=== PATIENT | male | born 1995 | race Caucasian/White ===

== ENCOUNTER 2017-07-26 23:38 | Emergency (ER) | payer OTHER ==
[~2017-07-26] VITALS: Ht 167.6 cm; Wt 77.1 kg
[~2017-07-26 23:38] MED LIST: ACETAMINOPHEN-1 EAC1 PO; AUGMENTIN 875875 MG PO; AZITHROMYCIN 2250 MG PO; DELTASONE20 MG PO; KEFLEX500 MG PO; MEDROLDOSEPACK PO; MUCINEX DM ER1 EAC1 PO; VENTOLIN HFA 1818 GM INH; ZOFRAN ODT4 MG PO
[2017-07-27 00:56] LABS: INFLUENZA A ANTIGEN None Detected (None Detect); INFLUENZA B ANTIGEN None Detected (None Detect)
[2017-07-27] MEDS ORDERED: PROMETH-CODEIN 65 ML PO (01:19)
[2017-07-27 01:43] VITALS: BP 128/72
== END 2017-07-27 01:45 | disposition home or self-care (01) ==
LOC: M.ERS 23:38
PROVIDERS: Emergency Medicine
DX: J06.9 Acute upper respiratory infection, unspecified (principal); J45.909 Unspecified asthma, uncomplicated; F10.99 Alcohol use, unspecified with unspecified alcohol-induced disorder; Z88.1 Allergy status to other antibiotic agents

== ENCOUNTER 2017-07-29 17:13 | Emergency (ER) | payer OTHER ==
[~2017-07-29] VITALS: Ht 167.6 cm; Wt 77.1 kg
[~2017-07-29 17:13] MED LIST changes: +PROMETH-CODEIN 65 ML PO
[2017-07-29] MEDS ORDERED: ZOFRAN ODT4 M1 PO (17:33)
[2017-07-29 17:35] VITALS: BP 127/70
== END 2017-07-29 17:37 | disposition home or self-care (01) ==
LOC: M.ERS 17:13
DX: R11.2 Nausea with vomiting, unspecified (principal); J06.9 Acute upper respiratory infection, unspecified; J45.909 Unspecified asthma, uncomplicated; Z88.1 Allergy status to other antibiotic agents

== ENCOUNTER 2017-08-27 21:29 | Emergency (ER) | payer OTHER ==
[~2017-08-27] VITALS: Ht 167.6 cm; Wt 77.1 kg
[~2017-08-27 21:29] MED LIST changes: +ZOFRAN ODT4 M1 PO
[2017-08-27 21:55] LABS: INFLUENZA A ANTIGEN None Detected (None Detect); INFLUENZA B ANTIGEN None Detected (None Detect)
[2017-08-27] MEDS ORDERED: PREDNISONE50 MG PO (21:59)
[2017-08-27] MEDS ORDERED: PROAIR HFA8.5 GM INH (21:59)
[2017-08-27 22:21] VITALS: BP 120/64
== END 2017-08-27 22:23 | disposition home or self-care (01) ==
LOC: M.ERS 21:29
PROVIDERS: Emergency Medicine
DX: J40 Bronchitis, not specified as acute or chronic (principal); Z88.1 Allergy status to other antibiotic agents

== ENCOUNTER 2017-09-02 13:05 | Emergency (ER) | payer OTHER ==
[~2017-09-02] VITALS: Ht 165.1 cm; Wt 77.1 kg
[~2017-09-02 13:05] MED LIST changes: +PREDNISONE50 MG PO; +PROAIR HFA8.5 GM INH
[2017-09-02 15:18] LABS: HEMATOCRIT 43.3 % (42.0-52.0); HEMOGLOBIN 14.5 gm/dL (14.0-18.0); MCH 28.2 pg (26.0-34.0); MCHC 33.4 g/dL (28.0-37.0); MCV 84.3 fL (80.0-100.0); MPV 8.9 fl. (7.2-11.1); NUCLEATED RBCS 0 /100WBC; PLATELET COUNT* 240 thou/uL (150-400); RBC 5.14 mil/uL (4.50-6.00); RDW-CV 13.2 % (10.5-14.5); WBC 21.3 thou/uL (4.0-11.0)
[2017-09-02 15:35] LABS: CALCIUM 8.5 mg/dL (8.5-10.1); CREATININE 0.8 mg/dL (0.6-1.3); POTASSIUM 4.2 mmol/L (3.5-5.1)
[2017-09-02 15:40] LABS: ABSOLUTE EOSINOPHILS 0.2 thou/uL (0.0-0.7); ABSOLUTE LYMPHOCYTES 1.5 thou/uL (0.8-5.3); ABSOLUTE MONOCYTES 1.5 thou/uL (0.0-1.2); ABSOLUTE NEUTROPHILS 18.1 thou/uL (1.6-8.1); ALBUMIN 3.2 g/dL (3.4-5.0); ATYPICAL LYMPHS 2 %; TOTAL BILIRUBIN 0.8 mg/dL (<0.1-1.0); TOTAL PROTEIN 6.6 g/dL (6.4-8.2)
[2017-09-02 15:41] LABS: PLATELET ESTIMATE ADEQUATE
[2017-09-02 17:10] LABS: URINE BILIRUBIN NEGATIVE (Negative); URINE BLOOD NEGATIVE (Negative); URINE CLARITY CLEAR; URINE COLOR YELLOW; URINE GLUCOSE-RANDOM NEGATIVE (Negative); URINE KETONES NEGATIVE (Negative); URINE LEUKOCYTES-REFLEX NEGATIVE (Negative); URINE NITRITE-REFLEX NEGATIVE (Negative); URINE PROTEIN NEGATIVE (Negative); URINE UROBILINOGEN 0.2 E.U./dl (0.2-1.0)
[2017-09-02 17:25] LABS: AMP/METHAMP Negative (Negative); BARBITURATES Negative (Negative); BENZODIAZEPINES Negative (Negative); COCAINE Negative (Negative); METHADONE Negative (Negative); OPIATES Negative (Negative); PCP Negative (Negative); THC Negative (Negative)
[2017-09-02] MEDS ORDERED: ZOFRAN ODT4 MG PO (17:56)
[2017-09-02] MEDS ORDERED: BENTYL 20 MG TA20 M1 PO (17:56)
[2017-09-02] MEDS ORDERED: PROMS25 WY RECTAL (17:56)
[2017-09-02 18:13] VITALS: BP 106/49
== END 2017-09-02 18:15 | disposition home or self-care (01) ==
LOC: M.ERS 13:05
PROVIDERS: Nurse Practitioner Family
DX: R10.84 Generalized abdominal pain (principal); R11.2 Nausea with vomiting, unspecified; R19.7 Diarrhea, unspecified; J45.909 Unspecified asthma, uncomplicated

== ENCOUNTER 2017-12-06 17:16 | Emergency (ER) | payer OTHER ==
[~2017-12-06] VITALS: Ht 167.6 cm; Wt 77.1 kg
[~2017-12-06 17:16] MED LIST changes: +BENTYL 20 MG TA20 M1 PO; +PROMS25 WY RECTAL
[2017-12-06 17:46] LABS: ABSOLUTE EOSINOPHILS 0.1 thou/uL (0.0-0.7); ABSOLUTE LYMPHOCYTES 1.4 thou/uL (0.8-5.3); ABSOLUTE MONOCYTES 0.6 thou/uL (0.0-1.2); ABSOLUTE NEUTROPHILS 5.1 thou/uL (1.6-8.1); BASOPHILS 0.5 %; EOSINOPHILS 1.3 %; HEMATOCRIT 45.2 % (42.0-52.0); HEMOGLOBIN 15.5 gm/dL (14.0-18.0); LYMPHOCYTES 19.9 %; MCH 28.4 pg (26.0-34.0); MCHC 34.4 g/dL (28.0-37.0); MCV 82.6 fL (80.0-100.0); MONOCYTES 8.2 %; MPV 9.2 fl. (7.2-11.1); NUCLEATED RBCS 0 /100WBC; PLATELET COUNT* 242 thou/uL (150-400); POLYS 70.1 %; RBC 5.47 mil/uL (4.50-6.00); RDW-CV 13.3 % (10.5-14.5); WBC 7.3 thou/uL (4.0-11.0)
[2017-12-06 17:59] LABS: APTT 23.2 Seconds (25.0-31.3)
[2017-12-06 18:03] LABS: CALCIUM 8.8 mg/dL (8.5-10.1); CREATININE 0.8 mg/dL (0.6-1.3); POTASSIUM 3.9 mmol/L (3.5-5.1)
[2017-12-06 18:07] LABS: ALBUMIN 3.9 g/dL (3.4-5.0); TOTAL BILIRUBIN 0.4 mg/dL (<0.1-1.0); TOTAL PROTEIN 7.4 g/dL (6.4-8.2)
[2017-12-06] MEDS ORDERED: ZOFRAN ODT4 MG PO (19:14)
[2017-12-06] MEDS ORDERED: TRAMADOL 50 MG50 MG PO (19:14)
[2017-12-06] MEDS ORDERED: CARAFATE1 GM/10 ML PO (19:15)
[2017-12-06 19:25] VITALS: BP 117/59
== END 2017-12-06 19:25 | disposition home or self-care (01) ==
LOC: M.ERS 17:16
PROVIDERS: Physician Assistant
DX: J45.909 Unspecified asthma, uncomplicated (principal); R19.7 Diarrhea, unspecified; Z88.1 Allergy status to other antibiotic agents

== ENCOUNTER 2018-02-12 22:34 | Emergency (ER) | payer OTHER ==
[~2018-02-12] VITALS: Ht 167.6 cm; Wt 72.6 kg
[~2018-02-12 22:34] MED LIST changes: +CARAFATE1 GM/10 ML PO; +TRAMADOL 50 MG50 MG PO
[2018-02-12] MEDS ORDERED: PREDNISONE50 MG PO (23:29)
[2018-02-12] MEDS ORDERED: ZPAK PO (23:29)
[2018-02-12] MEDS ORDERED: VENTOLIN HFA 1818 GM INH (23:29)
[2018-02-12 23:36] VITALS: BP 124/70
== END 2018-02-12 23:36 | disposition home or self-care (01) ==
LOC: M.ERS 22:34
DX: J18.9 Pneumonia, unspecified organism (principal); J45.909 Unspecified asthma, uncomplicated; Z88.1 Allergy status to other antibiotic agents

== ENCOUNTER 2018-02-14 21:54 | Emergency (ER) | payer OTHER ==
[~2018-02-14] VITALS: Ht 167.6 cm; Wt 72.6 kg
[~2018-02-14 21:54] MED LIST changes: +ZPAK PO
[2018-02-14 22:11] VITALS: BP 119/82
== END 2018-02-14 22:12 | disposition home or self-care (01) ==
LOC: M.ERS 21:54
DX: J40 Bronchitis, not specified as acute or chronic (principal); Z88.1 Allergy status to other antibiotic agents

== ENCOUNTER 2018-02-19 00:42 | Emergency (ER) | payer OTHER ==
[~2018-02-19] VITALS: Ht 167.6 cm; Wt 72.6 kg
[2018-02-19] MEDS ORDERED: FLONASE 0.05%50 MCG NASAL (00:55)
[2018-02-19 01:24] LABS: ABSOLUTE BASOPHILS 0.1 thou/uL (0.0-0.2); ABSOLUTE LYMPHOCYTES 3.4 thou/uL (0.8-5.3); ABSOLUTE MONOCYTES 1.6 thou/uL (0.0-1.2); ABSOLUTE NEUTROPHILS 11.6 thou/uL (1.6-8.1); BASOPHILS 0.5 %; HEMATOCRIT 46.2 % (42.0-52.0); HEMOGLOBIN 15.8 gm/dL (14.0-18.0); LYMPHOCYTES 20.4 %; MCH 28.4 pg (26.0-34.0); MCHC 34.1 g/dL (28.0-37.0); MCV 83.3 fL (80.0-100.0); MONOCYTES 9.5 %; MPV 8.3 fl. (7.2-11.1); NUCLEATED RBCS 0 /100WBC; PLATELET COUNT* 406 thou/uL (150-400); POLYS 69.6 %; RBC 5.55 mil/uL (4.50-6.00); RDW-CV 14.1 % (10.5-14.5); WBC 16.7 thou/uL (4.0-11.0)
[2018-02-19 01:34] LABS: CALCIUM 9.8 mg/dL (8.5-10.1); POTASSIUM 3.1 mmol/L (3.5-5.1)
[2018-02-19 01:39] LABS: ALBUMIN 4.3 g/dL (3.4-5.0); TOTAL BILIRUBIN 0.6 mg/dL (<0.1-1.0); TOTAL PROTEIN 7.7 g/dL (6.4-8.2)
[2018-02-19 01:58] LABS: URINE BILIRUBIN NEGATIVE (Negative); URINE BLOOD NEGATIVE (Negative); URINE CLARITY CLEAR; URINE COLOR YELLOW; URINE GLUCOSE-RANDOM NEGATIVE (Negative); URINE KETONES NEGATIVE (Negative); URINE LEUKOCYTES-REFLEX NEGATIVE (Negative); URINE NITRITE-REFLEX NEGATIVE (Negative); URINE PROTEIN NEGATIVE (Negative); URINE SPECIFIC GRAVITY 1.025 (1.005-1.030); URINE UROBILINOGEN 0.2 E.U./dl (0.2-1.0)
[2018-02-19 02:05] LABS: AMP/METHAMP Negative (Negative); BARBITURATES Negative (Negative); BENZODIAZEPINES Negative (Negative); COCAINE Negative (Negative); METHADONE Negative (Negative); OPIATES Negative (Negative); PCP Negative (Negative); THC Negative (Negative)
[2018-02-19] MEDS ORDERED: ZOFRAN ODT4 MG PO (03:31)
[2018-02-19 03:40] VITALS: BP 129/63
--- NOTE | 2018-02-19 11:14 | EKG ---
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
== END 2018-02-19 03:40 | disposition home or self-care (01) ==
LOC: M.ERS 00:42
PROVIDERS: Emergency Medicine
DX: R11.10 Vomiting, unspecified (principal); R07.89 Other chest pain; R10.13 Epigastric pain; R10.12 Left upper quadrant pain; J45.909 Unspecified asthma, uncomplicated; Z88.1 Allergy status to other antibiotic agents

== ENCOUNTER 2018-03-26 21:12 | Emergency (ER) | payer OTHER ==
[~2018-03-26] VITALS: Ht 167.6 cm; Wt 77.1 kg
[~2018-03-26 21:12] MED LIST changes: +FLONASE 0.05%50 MCG NASAL
[2018-03-26 21:16] VITALS: BP 127/77
[2018-03-26] MEDS ORDERED: ZOFRAN4 MG PO (21:23)
[2018-03-26] MEDS ORDERED: BENTYL 20 MG TA20 M1 PO (21:23)
== END 2018-03-26 21:28 | disposition home or self-care (01) ==
LOC: M.ERS 21:12
DX: R11.2 Nausea with vomiting, unspecified (principal); Z76.0 Encounter for issue of repeat prescription; J45.909 Unspecified asthma, uncomplicated; Z88.1 Allergy status to other antibiotic agents

== ENCOUNTER 2020-10-20 07:01 | Emergency (ER) | payer OTHER ==
[~2020-10-20] VITALS: Ht 170.2 cm; Wt 87.7 kg
[~2020-10-20 07:01] MED LIST changes: +ZOFRAN4 MG PO
[2020-10-20 07:53] LABS: ABSOLUTE LYMPHOCYTES 1.5 thou/uL (0.8-5.3); ABSOLUTE MONOCYTES 1.1 thou/uL (0.0-1.2); ABSOLUTE NEUTROPHILS 9.3 thou/uL (1.6-8.1); BASOPHILS 0.3 %; EOSINOPHILS 0.2 %; HEMATOCRIT 47.9 % (42.0-52.0); HEMOGLOBIN 16.5 gm/dL (14.0-18.0); LYMPHOCYTES 12.8 %; MCH 28.7 pg (26.0-34.0); MCHC 34.4 g/dL (28.0-37.0); MCV 83.4 fL (80.0-100.0); MONOCYTES 9.1 %; MPV 8.6 fl. (7.2-11.1); NUCLEATED RBCS 0 /100WBC; PLATELET COUNT* 321 thou/uL (150-400); POLYS 77.6 %; RBC 5.74 mil/uL (4.50-6.00); RDW-CV 13.2 % (10.5-14.5)
[2020-10-20 08:00] LABS: CALCIUM 9.6 mg/dL (8.5-10.1); POTASSIUM 3.6 mmol/L (3.5-5.1)
[2020-10-20 08:05] LABS: ALBUMIN 4.2 g/dL (3.4-5.0); TOTAL BILIRUBIN 1.4 mg/dL (<0.1-1.0); TOTAL PROTEIN 8.3 g/dL (6.4-8.2)
[2020-10-20 08:07] LABS: ACETAMINOPHEN < 2 ug/mL (10-30); ALCOHOL < 10 mg/dL (<10); SALICYLATE < 2.8 mg/dL (2.8-20.0)
[2020-10-20 08:36] LABS: URINE BLOOD TRACE (Negative); URINE CLARITY CLEAR; URINE COLOR YELLOW; URINE GLUCOSE-RANDOM NEGATIVE (Negative); URINE KETONES 2+ (Negative); URINE LEUKOCYTES-REFLEX NEGATIVE (Negative); URINE NITRITE-REFLEX NEGATIVE (Negative); URINE PROTEIN TRACE (Negative); URINE SPECIFIC GRAVITY 1.025 (1.005-1.030); URINE UROBILINOGEN 0.2 E.U./dl (0.2-1.0)
[2020-10-20 08:37] LABS: URINE BILIRUBIN 1+ (Negative)
[2020-10-20 08:38] LABS: ICTOTEST (BILI CONFIRMATORY) Negative (Negative)
[2020-10-20 08:43] LABS: AMP/METHAMP POSITIVE (Negative); BARBITURATES Negative (Negative); BENZODIAZEPINES Negative (Negative); COCAINE Negative (Negative); METHADONE Negative (Negative); OPIATES Negative (Negative); PCP Negative (Negative); THC Negative (Negative)
[2020-10-20 09:54] VITALS: BP 148/96
--- NOTE | 2020-10-21 11:19 | EKG ---
[place] [address] ELECTROCARDIOGRAM REPORT Name: KAYLEE OSORIO Room: [facility]#: [id number] Admission: 10/20/20 Attend Phys: Discharge: 10/20/20 Date of : [birth year] Date of Service: 10/20/20706 Report #: [id number] THIS REPORT FOR: //name// 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
== END 2020-10-20 09:55 | disposition home or self-care (01) ==
LOC: M.ERS 07:01
PROVIDERS: Emergency Medicine Emergency Medical Services
DX: F15.129 Other stimulant abuse with intoxication, unspecified (principal); R41.82 Altered mental status, unspecified; J45.909 Unspecified asthma, uncomplicated; Z88.1 Allergy status to other antibiotic agents

== ENCOUNTER 2021-01-29 14:47 | Emergency (ER) | payer OTHER ==
[~2021-01-29] VITALS: Ht 167.6 cm; Wt 86.2 kg
[2021-01-29 16:11] LABS: HEMATOCRIT 45.7 % (42.0-52.0); HEMOGLOBIN 16.2 gm/dL (14.0-18.0); MCH 29.6 pg (26.0-34.0); MCHC 35.3 g/dL (28.0-37.0); MCV 83.7 fL (80.0-100.0); MPV 8.7 fl. (7.2-11.1); RBC 5.46 mil/uL (4.50-6.00); RDW-CV 13.1 % (10.5-14.5)
[2021-01-29 16:12] LABS: URINE BILIRUBIN NEGATIVE (Negative); URINE BLOOD NEGATIVE (Negative); URINE CLARITY CLEAR; URINE COLOR YELLOW; URINE GLUCOSE-RANDOM NEGATIVE (Negative); URINE KETONES NEGATIVE (Negative); URINE LEUKOCYTES-REFLEX NEGATIVE (Negative); URINE NITRITE-REFLEX NEGATIVE (Negative); URINE PROTEIN NEGATIVE (Negative); URINE SPECIFIC GRAVITY 1.015 (1.005-1.030); URINE UROBILINOGEN 0.2 E.U./dl (0.2-1.0)
[2021-01-29 16:23] LABS: CALCIUM 8.4 mg/dL (8.5-10.1); CREATININE 0.9 mg/dL (0.6-1.3); POTASSIUM 3.7 mmol/L (3.5-5.1)
[2021-01-29] MEDS ORDERED: ONDANSETRON HCL4 M2 PO (17:07)
[2021-01-29] MEDS ORDERED: CARAFATE 1 GM TA1 G1 PO (17:07)
[2021-01-29 17:30] VITALS: BP 127/62
--- NOTE | 2021-01-30 11:43 | EKG ---
[place] [address] ELECTROCARDIOGRAM REPORT Name: JOKAYLEE RODRIGUEZ Room: 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1995 Requested By: José Miguel Deras Order Number: [id number] : Jeremy Ingram Measurements Intervals [place] Rate: 100 P: 44 CT: 139 QRS: 8 QRSD: 106 T: 31 QT: 340 QTc: 439 Interpretive Statements Sinus tachycardia RSR' in V1 or V2, right VCD or RVH Baseline wander in lead(s) II,III,aVR,aVL,aVF,V3,V5 Compared to ECG 10/20/2020 07:07:50 Right ventricular hypertrophy now present RSR' in V1 or V2 now present Electronically Signed On 01-30-2021 11:42:46 CDT by Jeremy Ingram [email or web address] <ELECTRONICALLY SIGNED> By: Jeremy Ingram MD, [facility] 01/30/21 1142 51 145 Jeremy Ingram MD, [facility] /EPI
== END 2021-01-29 17:30 | disposition home or self-care (01) ==
LOC: M.ERS 14:47
PROVIDERS: Nurse Practitioner
DX: R07.89 Other chest pain (principal); R10.13 Epigastric pain; R11.10 Vomiting, unspecified; R06.02 Shortness of breath; J45.909 Unspecified asthma, uncomplicated; Z90.89 Acquired absence of other organs; Z88.1 Allergy status to other antibiotic agents